=== PATIENT | male | born 1985 | race Caucasian/White ===

== ENCOUNTER 2017-11-27 08:56 | Emergency (ER) | payer MEDICAID ==
[2017-11-27] MEDS: KETOROLAC 30 MG INJ IV (09:59)
[2017-11-27] MEDS: SOD CHLORIDE 0.9% 1,000 ML IV (10:00)
== END 2017-11-27 11:20 | disposition home or self-care (01) ==
LOC: FTE 08:56
DX: R51 Headache (principal)
CPT/HCPCS: 96361; 96374; 99284-25